=== PATIENT | female | born 1945 | race Two or more races ===

== ENCOUNTER 2021-04-16 15:44 | Emergency (ER) | payer BC, OTHER ==
[~2021-04-16] VITALS: Ht 162.6 cm; Wt 65.8 kg
[2021-04-16 16:22] LABS: Basophils # (auto) 0.1 10 ^3/uL (0-0.2); Basophils % (auto) 1.2 % (0.0-2.0); Eosinophils # (auto) 0 10 ^3/uL (0-0.8); Eosinophils % (auto) 0.7 % (0.0-7.0); Hematocrit 36.5 % (36.0-46.0); Hemoglobin 12.2 g/dL (12.2-16.2); Lymphocytes # (auto) 1.2 10 ^3/uL (0.4-5.4); Lymphocytes % (auto) 19.8 % (10.0-50.0); Mean Corpuscular Hemoglobin 31.9 pg (28.0-32.0); Mean Corpuscular Hgb Conc. 33.5 g/dL (32.0-36.0); Mean Corpuscular Volume 95.1 fL (80.0-100.0); Monocytes # (auto) 0.5 10 ^3/uL (0-1.3); Monocytes % (auto) 8.7 % (0.0-12.0); Neutrophils # (auto) 4.2 10 ^3/uL (1.6-8.6); Neutrophils % (auto) 69.6 % (37.0-80.0); Red Blood Cells 3.84 10^6/uL (4.0-5.20); Red Cell Distribution Width 14.9 % (11.8-14.3)
[2021-04-16 16:39] LABS: Albumin 3.2 g/dL (3.4-5.0); Anion Gap 7 (5-15); Blood Urea Nitrogen 34 mg/dL (7-18); Calcium 8.9 mg/dL (8.5-10.1); Carbon Dioxide 25 mmol/L (21-32); Chloride 106 mmol/L (98-107); Glucose 216 mg/dL (74-106); Magnesium 2.4 mg/dL (1.6-2.6); Potassium 4.2 mmol/L (3.5-5.1); Sodium 138 mmol/L (136-145)
[2021-04-16 16:46] LABS: Alanine Aminotransferase 12 U/L (13-56); Alkaline Phosphatase 77 U/L (45-117); Aspartate Aminotransferase 11 U/L (15-37); Bilirubin, Total 1.1 mg/dL (0.2-1.0); GFR African American 51 mL/min; GFR Non-African American 42 mL/min; Total Protein 7.6 g/dL (6.4-8.2)
[2021-04-16] MEDS ORDERED: FUROSEMIDE 40 MG/4 ML VIAL IV ONE (18:15)
[2021-04-16 20:40] VITALS: BP 134/79
== END 2021-04-16 20:54 | disposition left against medical advice (07) ==
LOC: ER 15:44
DX: I11.0 Hypertensive heart disease with heart failure (principal); I50.9 Heart failure, unspecified
CPT/HCPCS: 36415; 71045; 80053; 83735; 83880; 84484; 85025; 93005; 96374; 99285; J1940

== ENCOUNTER 2021-08-21 13:01 | Inpatient (IN) | payer BC ==
[~2021-08-21] VITALS: Ht 165.1 cm; Wt 74.0 kg
[2021-08-22 01:31] LABS: Albumin 3.3 g/dL (3.4-5.0); Calcium 8.7 mg/dL (8.5-10.1); Magnesium 2.4 mg/dL (1.6-2.6); Potassium 4.2 mmol/L (3.5-5.1)
[2021-08-22 01:37] LABS: BUN/Creatinine Ratio 20.5; Bilirubin, Total 0.5 mg/dL (0.2-1.0)
[2021-08-22 01:43] LABS: White Blood Cell 6.9 10^3/uL (4.4-10.8)
[2021-08-22 01:48] LABS: Basophils # (auto) 0.1 10 ^3/uL (0-0.2); Basophils % (auto) 0.9 % (0.0-2.0); Eosinophils # (auto) 0 10 ^3/uL (0-0.8); Eosinophils % (auto) 0.4 % (0.0-7.0); Hemoglobin 12.5 g/dL (12.2-16.2); Lymphocytes # (auto) 1.4 10 ^3/uL (0.4-5.4); Lymphocytes % (auto) 20.9 % (10.0-50.0); Mean Corpuscular Hemoglobin 29.8 pg (28.0-32.0); Mean Corpuscular Hgb Conc. 32.8 g/dL (32.0-36.0); Mean Corpuscular Volume 90.8 fL (80.0-100.0); Monocytes # (auto) 0.6 10 ^3/uL (0-1.3); Neutrophils # (auto) 4.8 10 ^3/uL (1.6-8.6); Neutrophils % (auto) 69.8 % (37.0-80.0); Red Blood Cells 4.19 10^6/uL (4.0-5.20); Red Cell Distribution Width 15.5 % (11.8-14.3)
[2021-08-22] MEDS ORDERED: HYDROcodone-ACET 5/325MG TAB PO PRN (02:45)
[2021-08-22] MEDS ORDERED: ACETAMINOPHEN 325 MG TAB PO PRN (02:45)
[2021-08-22] MEDS ORDERED: ONDANSETRON HCL 4 MG/2 ML VIAL IV PRN (02:45)
[2021-08-22] MEDS: SODIUM CHLORIDE 0.9% 1,000 ML IV SCH ×2 (02:45→19:25)
[2021-08-22] MEDS ORDERED: DOCUSATE SOD 100 MG CAP PO PRN (02:45)
[2021-08-22] MEDS ORDERED: MORPHINE SULFATE INJECTION 2 MG/ML SYRG IV PRN (03:15)
[2021-08-22] MEDS ORDERED: NITROGLYCERIN 0.4 MG SL TAB SL PRN (03:15)
[2021-08-22] MEDS ORDERED: DEXTROSE (50%) 50ML SYRG IV PRN (03:15)
[2021-08-22] MEDS: ACCU-CHEK COMFORT CURVE STRIP VI SCH ×4 (07:55→21:41)
[2021-08-22] MEDS: InsuLIN REG 1unit/0.01ml Soln (100units/ml) SC SCH ×4 (08:11→21:46)
[2021-08-22 09:30] LABS: Basophils # (auto) 0.1 10 ^3/uL (0-0.2); Basophils % (auto) 0.9 % (0.0-2.0); Eosinophils # (auto) 0 10 ^3/uL (0-0.8); Eosinophils % (auto) 0.6 % (0.0-7.0); Hematocrit 36.2 % (36.0-46.0); Hemoglobin 11.8 g/dL (12.2-16.2); Lymphocytes # (auto) 1.1 10 ^3/uL (0.4-5.4); Lymphocytes % (auto) 17.1 % (10.0-50.0); Mean Corpuscular Hemoglobin 29.2 pg (28.0-32.0); Mean Corpuscular Hgb Conc. 32.6 g/dL (32.0-36.0); Mean Corpuscular Volume 89.6 fL (80.0-100.0); Monocytes # (auto) 0.6 10 ^3/uL (0-1.3); Monocytes % (auto) 9.8 % (0.0-12.0); Neutrophils # (auto) 4.5 10 ^3/uL (1.6-8.6); Neutrophils % (auto) 71.6 % (37.0-80.0); Nucleated Red Blood Cells % 0.1 %; Red Blood Cells 4.04 10^6/uL (4.0-5.20); Red Cell Distribution Width 15.1 % (11.8-14.3); White Blood Cell 6.3 10^3/uL (4.4-10.8)
[2021-08-22 09:36] LABS: Albumin 3.2 g/dL (3.4-5.0); Calcium 8.4 mg/dL (8.5-10.1); Potassium 4.2 mmol/L (3.5-5.1)
[2021-08-22 09:40] LABS: BUN/Creatinine Ratio 23.3; Bilirubin, Total 0.7 mg/dL (0.2-1.0); Total Protein 7.8 g/dL (6.4-8.2)
[2021-08-22] MEDS: ASPirin 81 mg TAB PO SCH (10:33)
[2021-08-22] MEDS: FAMOTIDINE (10MG/ML) 2ML VL IV SCH (10:33)
[2021-08-22] MEDS: ZINC SULFATE 220mg CAP or TAB PO SCH (10:34)
[2021-08-22] MEDS: MULTIPLE VITAMIN TAB PO SCH (10:34)
[2021-08-22] MEDS: ASCORBIC ACID 500 MG TAB PO SCH ×2 (10:34→21:42)
[2021-08-22] MEDS: HEPARIN SODIUM (PORCINE) 5000 UNITS/ML 1ML VIAL SC SCH ×2 (10:34→21:45)
[2021-08-22] MEDS: DOPamine 1600MCG/ML D5W 250 ML IV SCH (19:55)
[2021-08-22] MEDS: NOREPINEPHRINE 8 MG/250ML KIT 250 ML IV SCH (21:34)
[2021-08-22] MEDS ORDERED: METOPROLOL TARTRATE 25 MG TAB PO SCH (22:00)
[2021-08-23] MEDS: ACCU-CHEK COMFORT CURVE STRIP VI SCH ×4 (06:38→22:35)
[2021-08-23] MEDS: InsuLIN REG 1unit/0.01ml Soln (100units/ml) SC SCH ×4 (06:39→22:00)
[2021-08-23 09:38] LABS: Protein, Urine 104.2 mg/dL (0.0-11.9)
[2021-08-23 09:42] LABS: Urine Bacteria FEW /hpf (None Seen); Urine Blood Negative /uL (Negative); Urine Hyaline Cast FEW /lpf (0 - 2); Urine WBC 2 /hpf (0 - 5)
[2021-08-23 10:58] LABS: Basophils # (auto) 0.1 10 ^3/uL (0-0.2); Basophils % (auto) 1.2 % (0.0-2.0); Eosinophils # (auto) 0 10 ^3/uL (0-0.8); Eosinophils % (auto) 0.3 % (0.0-7.0); Hematocrit 35.6 % (36.0-46.0); Hemoglobin 11.5 g/dL (12.2-16.2); Lymphocytes # (auto) 1.1 10 ^3/uL (0.4-5.4); Lymphocytes % (auto) 18.7 % (10.0-50.0); Mean Corpuscular Hemoglobin 29.3 pg (28.0-32.0); Mean Corpuscular Hgb Conc. 32.4 g/dL (32.0-36.0); Mean Corpuscular Volume 90.6 fL (80.0-100.0); Monocytes # (auto) 0.4 10 ^3/uL (0-1.3); Monocytes % (auto) 7.7 % (0.0-12.0); Neutrophils # (auto) 4.2 10 ^3/uL (1.6-8.6); Neutrophils % (auto) 72.1 % (37.0-80.0); Nucleated Red Blood Cells % 0.1 %; Red Blood Cells 3.93 10^6/uL (4.0-5.20); Red Cell Distribution Width 15.7 % (11.8-14.3); White Blood Cell 5.8 10^3/uL (4.4-10.8)
[2021-08-23 11:16] LABS: Albumin 3.1 g/dL (3.4-5.0); Calcium 8.6 mg/dL (8.5-10.1); Potassium 4.4 mmol/L (3.5-5.1)
[2021-08-23 11:19] LABS: BUN/Creatinine Ratio 28.6; Bilirubin, Total 0.9 mg/dL (0.2-1.0); Total Protein 7.2 g/dL (6.4-8.2)
[2021-08-23] MEDS: MULTIPLE VITAMIN TAB PO SCH (12:15)
[2021-08-23] MEDS: ASPirin 81 mg TAB PO SCH (12:15)
[2021-08-23] MEDS: SODIUM CHLORIDE 0.9% 1,000 ML IV SCH (12:15)
[2021-08-23] MEDS: FAMOTIDINE (10MG/ML) 2ML VL IV SCH (12:15)
[2021-08-23] MEDS: ZINC SULFATE 220mg CAP or TAB PO SCH (12:15)
[2021-08-23] MEDS: ASCORBIC ACID 500 MG TAB PO SCH ×2 (12:15→22:00)
[2021-08-23] MEDS: HEPARIN SODIUM (PORCINE) 5000 UNITS/ML 1ML VIAL SC SCH ×2 (12:18→22:56)
[2021-08-23 14:08] LABS: INR 1.14 (0.9-1.15)
[2021-08-23] MEDS: PIPERACILLIN-TAZOB 2.25GM 50 ML IV SCH ×2 (14:27→18:34)
[2021-08-23] MEDS ORDERED: LORazepam 2MG/ML-1ML VIAL ONE (15:24)
[2021-08-23] MEDS ORDERED: LORazepam 2MG/ML-1ML VIAL IV ONE (15:30)
[2021-08-23] MEDS ORDERED: ATO40T PO (16:30)
[2021-08-23] MEDS ORDERED: APIX2.5T PO (16:30)
[2021-08-23] MEDS ORDERED: LISI-275 PO (16:30)
[2021-08-23] MEDS ORDERED: POTA-180 PO (16:30)
[2021-08-23] MEDS ORDERED: CARV12.544 PO (16:30)
[2021-08-23] MEDS ORDERED: SITA100T7 PO (16:30)
[2021-08-23] MEDS ORDERED: ERGO1CAP23 PO (16:30)
[2021-08-23] MEDS ORDERED: FURO40TA4 PO (16:30)
[2021-08-23] MEDS: DOPamine 1600MCG/ML D5W 250 ML IV SCH (19:30)
[2021-08-23] MEDS: NOREPINEPHRINE 8 MG/250ML KIT 250 ML IV SCH (21:00)
[2021-08-24] MEDS: PIPERACILLIN-TAZOB 2.25GM 50 ML IV SCH ×4 (00:56→18:11)
[2021-08-24] MEDS: SODIUM CHLORIDE 0.9% 1,000 ML IV SCH (05:24)
[2021-08-24] MEDS: ACCU-CHEK COMFORT CURVE STRIP VI SCH ×4 (06:33→22:59)
[2021-08-24] MEDS: InsuLIN REG 1unit/0.01ml Soln (100units/ml) SC SCH ×4 (06:35→23:29)
[2021-08-24 08:57] LABS: Basophils # (auto) 0 10 ^3/uL (0-0.2); Basophils % (auto) 1.2 % (0.0-2.0); Eosinophils # (auto) 0 10 ^3/uL (0-0.8); Eosinophils % (auto) 0.5 % (0.0-7.0); Hematocrit 32.5 % (36.0-46.0); Hemoglobin 10.5 g/dL (12.2-16.2); Lymphocytes # (auto) 0.4 10 ^3/uL (0.4-5.4); Mean Corpuscular Hemoglobin 29.3 pg (28.0-32.0); Mean Corpuscular Hgb Conc. 32.2 g/dL (32.0-36.0); Mean Corpuscular Volume 91.3 fL (80.0-100.0); Monocytes # (auto) 0.3 10 ^3/uL (0-1.3); Monocytes % (auto) 6.9 % (0.0-12.0); Neutrophils # (auto) 3.3 10 ^3/uL (1.6-8.6); Neutrophils % (auto) 82.4 % (37.0-80.0); Nucleated Red Blood Cells % 0.1 %; Red Blood Cells 3.56 10^6/uL (4.0-5.20); Red Cell Distribution Width 15.8 % (11.8-14.3)
[2021-08-24 09:51] LABS: BUN/Creatinine Ratio 30.4; Calcium 8.6 mg/dL (8.5-10.1); Potassium 4.2 mmol/L (3.5-5.1)
[2021-08-24] MEDS: ZINC SULFATE 220mg CAP or TAB PO SCH (11:33)
[2021-08-24] MEDS: HEPARIN SODIUM (PORCINE) 5000 UNITS/ML 1ML VIAL SC SCH ×2 (11:33→22:59)
[2021-08-24] MEDS: ASCORBIC ACID 500 MG TAB PO SCH ×2 (11:33→22:59)
[2021-08-24] MEDS: ASPirin 81 mg TAB PO SCH (11:33)
[2021-08-24] MEDS: FAMOTIDINE (10MG/ML) 2ML VL IV SCH (11:33)
[2021-08-24] MEDS: MULTIPLE VITAMIN TAB PO SCH (11:33)
[2021-08-24] MEDS: NOREPINEPHRINE 8 MG/250ML KIT 250 ML IV SCH (21:00)
[2021-08-25] MEDS: PIPERACILLIN-TAZOB 2.25GM 50 ML IV SCH ×3 (00:16→06:29)
[2021-08-25 02:46] VITALS: BP 122/60
[2021-08-25 05:00] VITALS: BP 128/73
[2021-08-25 06:03] LABS: Basophils # (auto) 0 10 ^3/uL (0-0.2); Basophils % (auto) 0.8 % (0.0-2.0); Eosinophils # (auto) 0 10 ^3/uL (0-0.8); Eosinophils % (auto) 0.4 % (0.0-7.0); Hematocrit 33.2 % (36.0-46.0); Hemoglobin 10.9 g/dL (12.2-16.2); Lymphocytes # (auto) 0.4 10 ^3/uL (0.4-5.4); Lymphocytes % (auto) 13.1 % (10.0-50.0); Mean Corpuscular Hemoglobin 30.2 pg (28.0-32.0); Mean Corpuscular Hgb Conc. 32.9 g/dL (32.0-36.0); Mean Corpuscular Volume 91.9 fL (80.0-100.0); Monocytes # (auto) 0.4 10 ^3/uL (0-1.3); Monocytes % (auto) 12.8 % (0.0-12.0); Neutrophils # (auto) 2.5 10 ^3/uL (1.6-8.6); Neutrophils % (auto) 72.9 % (37.0-80.0); Nucleated Red Blood Cells % 0.1 %; Red Blood Cells 3.62 10^6/uL (4.0-5.20); Red Cell Distribution Width 15.9 % (11.8-14.3); White Blood Cell 3.4 10^3/uL (4.4-10.8)
[2021-08-25 06:30] LABS: Potassium 4.6 mmol/L (3.5-5.1)
[2021-08-25 06:47] LABS: BUN/Creatinine Ratio 28.8; Calcium 8.2 mg/dL (8.5-10.1)
[2021-08-25] MEDS: InsuLIN REG 1unit/0.01ml Soln (100units/ml) SC SCH ×4 (06:50→22:00)
[2021-08-25] MEDS: ACCU-CHEK COMFORT CURVE STRIP VI SCH ×4 (06:50→22:28)
[2021-08-25 09:00] VITALS: BP 129/57
[2021-08-25] MEDS: FAMOTIDINE (10MG/ML) 2ML VL IV SCH (10:47)
[2021-08-25] MEDS: ASPirin 81 mg TAB PO SCH (10:48)
[2021-08-25] MEDS: ZINC SULFATE 220mg CAP or TAB PO SCH (10:48)
[2021-08-25] MEDS: ASCORBIC ACID 500 MG TAB PO SCH ×2 (10:49→22:28)
[2021-08-25] MEDS: HEPARIN SODIUM (PORCINE) 5000 UNITS/ML 1ML VIAL SC SCH ×2 (10:49→22:28)
[2021-08-25] MEDS: MULTIPLE VITAMIN TAB PO SCH (10:49)
[2021-08-25 13:00] VITALS: BP 134/69
[2021-08-25] MEDS: PIPERACILLIN-TAZOB 3.375GM 100 ML IV SCH ×2 (13:26→22:27)
[2021-08-25 16:49] VITALS: BP 138/78
[2021-08-25] MEDS: NOREPINEPHRINE 8 MG/250ML KIT 250 ML IV SCH (21:00)
[2021-08-25 22:00] VITALS: BP 125/73
[2021-08-26 05:00] VITALS: BP 135/99
[2021-08-26] MEDS: PIPERACILLIN-TAZOB 3.375GM 100 ML IV SCH ×2 (05:47→13:53)
[2021-08-26] MEDS: ACCU-CHEK COMFORT CURVE STRIP VI SCH ×3 (06:30→17:00)
[2021-08-26] MEDS: InsuLIN REG 1unit/0.01ml Soln (100units/ml) SC SCH ×3 (06:30→17:00)
[2021-08-26 07:08] LABS: Basophils # (auto) 0 10 ^3/uL (0-0.2); Basophils % (auto) 0.8 % (0.0-2.0); Eosinophils # (auto) 0.1 10 ^3/uL (0-0.8); Eosinophils % (auto) 1.3 % (0.0-7.0); Hematocrit 32.8 % (36.0-46.0); Hemoglobin 10.6 g/dL (12.2-16.2); Lymphocytes # (auto) 0.9 10 ^3/uL (0.4-5.4); Lymphocytes % (auto) 21.2 % (10.0-50.0); Mean Corpuscular Hgb Conc. 32.5 g/dL (32.0-36.0); Mean Corpuscular Volume 92.3 fL (80.0-100.0); Monocytes # (auto) 0.6 10 ^3/uL (0-1.3); Monocytes % (auto) 14.6 % (0.0-12.0); Neutrophils # (auto) 2.5 10 ^3/uL (1.6-8.6); Neutrophils % (auto) 62.1 % (37.0-80.0); Nucleated Red Blood Cells % 0.5 %; Red Blood Cells 3.55 10^6/uL (4.0-5.20); Red Cell Distribution Width 16.2 % (11.8-14.3)
[2021-08-26 07:32] LABS: Calcium 8.2 mg/dL (8.5-10.1); Potassium 4.5 mmol/L (3.5-5.1)
[2021-08-26 09:00] VITALS: BP 137/68
[2021-08-26] MEDS: ZINC SULFATE 220mg CAP or TAB PO SCH ×2 (10:45→11:01)
[2021-08-26] MEDS: ASPirin 81 mg TAB PO SCH ×2 (10:45→11:02)
[2021-08-26] MEDS: MULTIPLE VITAMIN TAB PO SCH ×2 (10:45→11:01)
[2021-08-26] MEDS: ASCORBIC ACID 500 MG TAB PO SCH ×2 (10:46→11:01)
[2021-08-26] MEDS: HEPARIN SODIUM (PORCINE) 5000 UNITS/ML 1ML VIAL SC SCH (11:00)
[2021-08-26 13:00] VITALS: BP 130/61
[2021-08-26 15:18] VITALS: BP 89/59
[2021-08-26 16:49] VITALS: BP 151/72
== END 2021-08-26 18:00 | disposition home or self-care (01) | DRG 177 ==
LOC: ER 13:01 → TELE 08-22 03:03 → TELE-E-ADS 08-25 02:59
PROVIDERS: ADMIT Nurse Practitioner Family; ATTEND Internal Medicine
PROC: 05HB33Z Insertion of Infusion Device into Right Basilic Vein, Percutaneous Approach (ICD-10-PCS; principal; 2021-08-23)
PROC: B54MZZA Ultrasonography of Right Upper Extremity Veins, Guidance (ICD-10-PCS; 2021-08-23)
DX: U07.1 COVID-19 (principal); G93.41 Metabolic encephalopathy; N17.0 Acute kidney failure with tubular necrosis; I50.21 Acute systolic (congestive) heart failure; J12.82 Pneumonia due to coronavirus disease 2019; D68.59 Other primary thrombophilia; N39.0 Urinary tract infection, site not specified; I27.21 Secondary pulmonary arterial hypertension; D63.1 Anemia in chronic kidney disease; E11.40 Type 2 diabetes mellitus with diabetic neuropathy, unspecified; I48.91 Unspecified atrial fibrillation; E11.65 Type 2 diabetes mellitus with hyperglycemia; I27.20 Pulmonary hypertension, unspecified; I11.0 Hypertensive heart disease with heart failure; R77.8 Other specified abnormalities of plasma proteins; E11.21 Type 2 diabetes mellitus with diabetic nephropathy; Z86.73 Personal history of transient ischemic attack (TIA), and cerebral infarction without residual deficits
CPT/HCPCS: 36415; 70450; 71046; 76775; 80048; 80053; 81001; 82570; 82962; 83036; 83735; 83880; 84156; 84300; 84439; 84443; 84484; 85025; 85610; 87040; 87086; 87426; 93005; 93306; 96361; 96374; G0378; J1815; J2405; J2543; J3490